=== PATIENT | male | born 1950 | race Hispanic/Latino ===

== ENCOUNTER 2022-04-28 15:34 | Outpatient (CLI) | payer MEDICARE | END 2022-04-28 15:35 | disposition home or self-care (01) | LOC: BICRAD 15:34 | PROVIDERS: ATTEND Family Medicine | DX: R63.4 Abnormal weight loss (principal) | CPT/HCPCS: 36415; 71046; 80053; 80061; 83036; 84443; 85025; G0103 ==

== ENCOUNTER 2023-03-30 00:10 | Emergency (ER) | payer MEDICARE ==
[2023-03-30 00:52] LABS: #Eosinphils 0.1 thou/uL (0.0-0.7); #Monocytes 0.3 thou/uL (0.11-0.59); #Neutrophils 2.7 thou/uL (1.40-6.50); %Basophils 0.8 % (0.0-1.0); %Eosinophils 2.5 % (0.0-10.0); %Lymphocytes 37.2 % (21.0-51.0); %Monocytes 6.6 % (0.0-10.0); %Neutrophils 52.7 % (42.0-75.0); Hemoglobin 13.6 g/dL (14.0-18.0); Mean Corpuscular HGB CONC 34.9 g/dL (32.0-36.0); Mean Corpuscular Hemoglobin 30.4 pg (27.0-31.0); Mean Corpuscular Volume 87.2 fl (78.0-98.0); Mean Platelet Volume 10.3 fL (7.4-10.4); Platelet Count 206 10x3/uL (130-400); RBC Distribution Width 13.2 % (11.5-14.5); Red Blood Cell (RBC) Count 4.47 mill/uL (4.70-6.10); White Blood Cell (WBC) Count 5.1 10x3/uL (4.8-10.8)
[2023-03-30 01:21] LABS: ALT (SGPT) 69 U/L (8-55); AST (SGOT) 50 U/L (5-34); Albumin 4.2 g/dL (3.4-4.8); Alkaline Phosphatase 102 U/L (40-110); Anion Gap 13 mmol/L (10-20); BUN (Urea Nitrogen) 15 mg/dL (8.4-25.7); Bilirubin, Total 0.6 mg/dL (0.2-1.2); Calc. Creatinine Clearance 0 mL/min (70-130); Calcium 9.2 mg/dL (7.8-10.44); Carbon Dioxide 25 mmol/L (23-31); Chloride 100 mmol/L (98-107); Estimated GFR 70; Globulin 3.5 g/dL (2.4-3.5); Glucose 75 mg/dL (83-110); Lipase 26 U/L (8-78); Potassium 4.4 mmol/L (3.5-5.1); Protein, Total 7.7 g/dL (5.8-8.1); Sodium 134 mmol/L (136-145)
[2023-03-30 01:25] LABS: Troponin I Less than 0.010 ng/mL (< 0.028)
[2023-03-30 02:47] LABS: Troponin I Less than 0.010 ng/mL (< 0.028)
[2023-03-30 03:03] LABS: Bacteria/HPF None Seen HPF (None Seen); Bilirubin Negative (Negative); Blood, Urine Negative (Negative); CAUTI Indications for Culture Alt mental st,lethar; Clarity Clear (Clear); Glucose, Urine (Dipstick) Normal (Negative); Ketone, Urine Negative (Negative); Leukocyte Negative Leu/uL (Negative); Nitrite Negative (Negative); Protein, Urine (Dipstick) Negative (Neg-Trace); RBC/HPF 0-3 HPF (0-3); Squamous Epithelial None Seen HPF (0-3); WBC/HPF None Seen HPF (0-3)
[2023-03-30 03:09] LABS: Urine Culture Reflex No No
[2023-03-30 03:57] LABS: Free T4 (Free Thyroxine) 1.03 ng/dL (0.70-1.48)
== END 2023-03-30 03:30 | disposition home or self-care (01) ==
LOC: ERS 00:10
DX: R42 Dizziness and giddiness (principal); R29.710 NIHSS score 10; I48.91 Unspecified atrial fibrillation; I10 Essential (primary) hypertension; I25.10 Atherosclerotic heart disease of native coronary artery without angina pectoris; Z79.01 Long term (current) use of anticoagulants; Z79.82 Long term (current) use of aspirin
CPT/HCPCS: 36415; 71045; 80053; 81001; 83690; 83735; 83880; 84439; 84443; 84481; 84484; 85025; 93005

== ENCOUNTER 2023-12-03 20:11 | Emergency (ER) | payer MEDICARE ==
[2023-12-03] MEDS ORDERED: Apixaban 5 MG TAB ONE (20:19)
== END 2023-12-03 20:22 | disposition home or self-care (01) ==
LOC: ERS 20:11
DX: Z76.0 Encounter for issue of repeat prescription (principal); I25.10 Atherosclerotic heart disease of native coronary artery without angina pectoris; I10 Essential (primary) hypertension; E78.5 Hyperlipidemia, unspecified; Z55.6 Problems related to health literacy
CPT/HCPCS: 99281

== ENCOUNTER 2024-03-31 19:26 | Emergency (ER) | payer MEDICARE ==
[2024-03-31] MEDS ORDERED: Apixaban 5 MG TAB ONE (20:38)
== END 2024-03-31 20:52 | disposition home or self-care (01) ==
LOC: ERS 19:26
DX: Z76.0 Encounter for issue of repeat prescription (principal)
CPT/HCPCS: 99281